=== PATIENT | male | born 1955 | race Hispanic/Latino ===

== ENCOUNTER 2020-12-17 09:32 | Emergency (ER) | payer MEDICARE ==
--- NOTE | 2020-12-17 09:49 | Emergency Department Report ---
HPI - General Time Seen by Provider: 12/17/20 09:45 - HPI HPI: 65-year-old -Spanish male presents to the emergency department via EMS from "home" after his sister witnessed him having some seizure-like activity just prior to presentation. The patient says that he EMS found the patient to be unconscious and postictal. The patient says that the last thing he remembers is waking up with EMS evaluating him. He has become awake and alert in route to the emergency department and at the time of my initial evaluation is AAO x3, GCS 15. The patient says "I feel fine." He denies any past medical history but also admits he does not follow with a physician since he was a child. He denies any tobacco use. He admits to alcohol use but denies any daily use or history of dependence or withdrawals. The patient sleeps on the front porch of his mother's house in a sleeping bag, which is where he was found. ED Review of Systems ROS: Stated complaint: SEIZURE LIKE ACTIVITY Other details as noted in HPI Comment: All other systems reviewed and negative Constitutional: denies: chills, fever Eyes: denies: eye pain, vision change ENT: denies: ear pain, throat pain Respiratory: denies: cough, shortness of breath Cardiovascular: denies: chest pain, palpitations Gastrointestinal: denies: abdominal pain, vomiting Genitourinary: denies: dysuria, discharge Musculoskeletal: denies: back pain, arthralgia Skin: denies: rash, lesions Neurological: denies: headache, weakness Physical Exam - Physical Exam Physical Exam: GENERAL: The patient is well-developed well-nourished. HENT: Normocephalic. Patient has moist mucous membranes. EYES: Extraocular motions are intact. Pupils equal reactive to light bilaterally. NECK: Supple. Trachea is midline. CHEST/LUNGS: Clear to auscultation. There is no respiratory distress noted. HEART/CARDIOVASCULAR: Regular. There is no tachycardia. There is no murmur. ABDOMEN: Abdomen is soft, nontender. Patient has normal bowel sounds. SKIN: Skin is warm and dry. There is an abrasion or a very small laceration just lateral to the right eyebrow. NEURO: The patient is awake, alert, and oriented. The patient is cooperative. The patient has no focal neurologic deficits. Normal speech. Cranial nerves II through XII grossly intact. MUSCULOSKELETAL: There is no tenderness or deformity. There is no limitation range of motion. ED Medical Decision Making - Medical Decision Making This patient initially presented to the emergency department after he had some seizure-like activity and then a postictal state. The patient became awake and alert surrounded by EMS. But the time he got to the emergency department he is AAO x3, GCS of 15. He has a slight abrasion or very mild laceration just lateral to the right eyebrow. Otherwise he does not appear in any acute distress. The patient denies having any past medical history. He denies having any previous seizures. I explained to the patient that I feel that he needs an EKG and some initial blood work, as well as the possibility of a CT scan of the head, to evaluate this new onset seizure. However, the patient is refusing any further evaluation or work-up. I explained to the patient that leaving AGAINST MEDICAL ADVICE at this time would not allow me to evaluate why the patient had this new onset seizure and could lead to future seizures, further head injury, coma, debility, or even . However, he is awake, alert, oriented, AAO x3, and has a normal decision-making capacity. Therefore, despite understanding the risks the patient has still decided to leave [facility] and has signed the A paperwork. He understands that he can return to the emergency department at any time if he changes his mind about evaluation or with any acute distress. Critical Care Time: No Critical care attestation.: If time is entered above; I have spent that time in minutes in the direct care of this critically ill patient, excluding procedure time. ED Disposition Clinical Impression: Seizure-like activity Facial abrasion Qualifiers: Encounter type: initial encounter Qualified Code(s): S00.81XA - Abrasion of other part of head, initial encounter Disposition: 07 LEFT AGAINST MEDICAL ADVICE Is pt being admited?: No Additional Instructions: Please return to the emergency department if you change your mind about evaluation of this seizure-like activity, or with any acute distress. Forms: AMA Form Time of Disposition: 09:49
[2020-12-17 09:59] VITALS: BP 119/67
== END 2020-12-17 10:00 | disposition left against medical advice (07) ==
LOC: ED 09:32
DX: S00.81XA Abrasion of other part of head, initial encounter (principal); R56.9 Unspecified convulsions; X58.XXXA Exposure to other specified factors, initial encounter; Y93.89 Activity, other specified; Y92.89 Other specified places as the place of occurrence of the external cause; Y99.8 Other external cause status
CPT/HCPCS: 99283